=== PATIENT | male | born 1965 | race African-American/Black ===

== ENCOUNTER 2018-01-05 13:52 | Emergency (ER) | payer OTHER ==
[~2018-01-05] VITALS: Ht 170.2 cm; Wt 90.9 kg
[~2018-01-05 13:52] MED LIST: ACET-784 PO; ASPI-556 PO; ATEN50TA PO; AUD NEB; BACIO TP; BENZ1LOZ68 PO; BISA10S PR; CLON-570 PO; IBUP-2070 PO; IPRNEB IH; LISI-662 PO; LOPE2 PO; MAAES30 PO; MOM30 PO; ONDA220I IV; OXYC-158 PO; PANT40TA25 PO; PETR18JE3 TP; ZOLP5 PO
[2018-01-05] MEDS ORDERED: KETOROLAC TROMETHAMINE 60 MG/2 ML VIAL IM ONE (14:45)
[2018-01-05] MEDS ORDERED: METHOCARBAMOL 500 MG TABLET PO ONE (14:45)
[2018-01-05 15:18] VITALS: BP 121/77
== END 2018-01-05 15:26 | disposition home or self-care (01) ==
LOC: EMS 13:54
DX: M54.42 Lumbago with sciatica, left side (principal); I10 Essential (primary) hypertension; Z86.73 Personal history of transient ischemic attack (TIA), and cerebral infarction without residual deficits; Z79.82 Long term (current) use of aspirin
CPT/HCPCS: 96372; 99283; J1885

== ENCOUNTER 2018-03-01 16:59 | Emergency (ER) | payer OTHER ==
[~2018-03-01] VITALS: Ht 170.2 cm; Wt 96.4 kg
[2018-03-01] MEDS ORDERED: ALBUTEROL SULFATE HFA 90 MCG/PUFF 8 GM INHALER IH ONE (21:00)
[2018-03-01 22:05] VITALS: BP 156/99
[2018-03-01] MEDS ORDERED: HYDROCODONE/ACETAMINOPHEN 5-325 MG TABLET PO ONE (22:45)
[2018-03-01] MEDS ORDERED: KETOROLAC TROMETHAMINE 60 MG/2 ML VIAL IM ONE (22:45)
== END 2018-03-01 22:58 | disposition home or self-care (01) ==
LOC: EMS 17:00
DX: M54.41 Lumbago with sciatica, right side (principal); R06.2 Wheezing; R05 Cough; I10 Essential (primary) hypertension; Z86.73 Personal history of transient ischemic attack (TIA), and cerebral infarction without residual deficits
CPT/HCPCS: 71046; 94640; 96372; 99284; J1885; J3535

== ENCOUNTER 2018-05-12 15:17 | Emergency (ER) | payer MEDICARE, OTHER ==
[~2018-05-12] VITALS: Ht 170.2 cm; Wt 96.4 kg
[~2018-05-12 15:17] MED LIST changes: -ACET-784 PO; -AUD NEB; -BACIO TP; -BENZ1LOZ68 PO; -BISA10S PR; -CLON-570 PO; -IBUP-2070 PO; -IPRNEB IH; -LOPE2 PO; -MAAES30 PO; -MOM30 PO; -ONDA220I IV; -OXYC-158 PO; -PANT40TA25 PO; -PETR18JE3 TP; -ZOLP5 PO
[2018-05-12] MEDS ORDERED: AMLO-511 PO (15:27)
[2018-05-12] MEDS ORDERED: LISI1TAB11 PO (15:27)
[2018-05-12] MEDS ORDERED: METHOCARBAMOL 500 MG TABLET PO ONE (16:30)
[2018-05-12] MEDS ORDERED: KETOROLAC TROMETHAMINE 60 MG/2 ML VIAL IM ONE (16:30)
[2018-05-12] MEDS ORDERED: LISINOPRIL 10 MG TABLET PO ONE (17:30)
[2018-05-12 18:06] VITALS: BP 142/92
== END 2018-05-12 18:16 | disposition home or self-care (01) ==
LOC: EMS 15:18
DX: M54.5 Low back pain (principal); I10 Essential (primary) hypertension; Z86.73 Personal history of transient ischemic attack (TIA), and cerebral infarction without residual deficits; Z86.79 Personal history of other diseases of the circulatory system; Z79.82 Long term (current) use of aspirin; Z79.899 Other long term (current) drug therapy
CPT/HCPCS: 96372; 99283; J1885